=== PATIENT | female | born 1970 | race Caucasian/White ===

== ENCOUNTER 2020-05-01 15:03 | Inpatient (IN) | payer OTHER ==
[~2020-05-01] VITALS: Ht 154.9 cm; Wt 61.0 kg
[2020-05-01 16:50] VITALS: BP 106/62
[2020-05-01] MEDS ORDERED: TRAZODONE50 MG PO (17:39)
[2020-05-01] MEDS ORDERED: SEROQUEL25 MG PO (17:40)
[2020-05-01 18:37] LABS: BASO # 0.1 10*3/uL (0.0-0.1); BASO % 0.7 % (0.0-1.0); EOS # 0.1 10*3/uL (0.0-0.4); EOS % 1.6 % (1.0-4.0); HEMATOCRIT 37.8 % (37.0-47.0); LYMPH # 2.4 10*3/uL (1.3-4.4); LYMPH % 29.9 % (27.0-41.0); MEAN CELL VOLUME 93.8 fl (81.0-99.0); MEAN CORPUSCULAR HGB 30.3 pg (27.0-31.0); MEAN CORPUSCULAR HGB CONC 32.3 g/dl (33.0-37.0); MEAN PLATELET VOLUME 10.8 fl (9.6-12.3); MONO # 0.6 10*3/uL (0.1-1.0); MONO % 7.8 % (3.0-9.0); NEUT # 4.8 10*3/uL (2.3-7.9); NEUT % 59.8 % (47.0-73.0); PLATELET COUNT AUTOMATED 280 10*3/uL (130-400); RED BLOOD COUNT 4.03 10*6/uL (4.10-5.10); WHITE BLOOD COUNT 8.1 10*3/uL (4.8-10.8)
[2020-05-01 18:52] LABS: ALKALINE PHOSPHATASE 88 U/L (45-117); BUN 13 mg/dl (7-24); CHLORIDE 104 mmol/L (98-107); POTASSIUM 3.6 mmol/L (3.5-5.1); SGOT/AST 16 IU/L (3-35); SGPT/ALT 25 U/L (12-78); SODIUM 137 mmol/L (136-145); TOTAL PROTEIN 8.4 gm/dL (6.4-8.2)
[2020-05-01 18:56] LABS: BETA-HCG, QUANT < 1.0 mIU/mL (1-3)
[2020-05-01 19:54] LABS: BILIRUBIN NEGATIVE (NEGATIVE); CLARITY CLEAR (CLEAR); COLOR YELLOW (YELLOW); GLUCOSE NEGATIVE (NEGATIVE); KETONE NEGATIVE (NEGATIVE)
[2020-05-01 19:55] LABS: BLOOD NEGATIVE (NEGATIVE); LEUKO ESTERASE NEGATIVE (NEGATIVE); NITRITE NEGATIVE (NEGATIVE); SPECIFIC GRAVITY 1.005 (1.005-1.030); UROBILINOGEN 0.2 E.U./dl (0.2-1.0)
[2020-05-01 20:00] VITALS: BP 105/69
[2020-05-01 20:00] LABS: BACTERIA 2+; RBC 0-2 rbc/hpf (0-2); URINE AMPHETAMINES < 1000 (1000ng/ml); URINE BARBITURATES < 200 (200ng/ml); URINE BENZODIAZEPINES < 200 (200ng/ml); URINE CANNABINOIDS (THC) < 50 (50ng/ml); URINE COCAINE > 300 (300ng/ml); URINE METHADONE < 300 (300ng/ml); URINE OPIATES > 300 (300ng/ml); WBC 0-2 wbc/hpf (0-5)
[2020-05-01 20:05] LABS: URINE PHENCYCLIDINE < 25 (25ng/ml)
[2020-05-02] VITALS: BP 96/57
[2020-05-02 08:00] VITALS: BP 117/68
[2020-05-02 08:07] VITALS: BP 104/70
[2020-05-02 12:00] VITALS: BP 103/70
[2020-05-02 16:00] VITALS: BP 114/68
[2020-05-02 20:00] VITALS: BP 113/69
[2020-05-03] VITALS: BP 136/70
[2020-05-03 08:00] VITALS: BP 118/75
[2020-05-03 12:00] VITALS: BP 112/69
[2020-05-03 16:00] VITALS: BP 114/75
[2020-05-03 20:00] VITALS: BP 131/82
[2020-05-04] VITALS: BP 120/72
[2020-05-04 08:00] VITALS: BP 121/98
[2020-05-04] MEDS ORDERED: VITAMIN B-1100 M1 PO (11:46)
[2020-05-04] MEDS ORDERED: ATARAX,VISTARIL50 MG PO (11:46)
[2020-05-04] MEDS ORDERED: NICORETTE2 MG PO (11:46)
[2020-05-04] MEDS ORDERED: ROPINIROLE HYD0.5 MG PO (11:46)
[2020-05-04] MEDS ORDERED: ZOFRAN4 MG PO (11:46)
== END 2020-05-04 12:03 | disposition home or self-care (01) | DRG 773 ==
LOC: 5E 15:03 → 4E 15:03 → 5E 15:11
PROVIDERS: Internal Medicine; ADMIT Internal Medicine
DX: F10.230 Alcohol dependence with withdrawal, uncomplicated (principal); F11.23 Opioid dependence with withdrawal; F43.10 Post-traumatic stress disorder, unspecified; F31.9 Bipolar disorder, unspecified; F41.9 Anxiety disorder, unspecified; E16.2 Hypoglycemia, unspecified; F17.210 Nicotine dependence, cigarettes, uncomplicated; R23.1 Pallor; Z71.6 Tobacco abuse counseling; Z80.42 Family history of malignant neoplasm of prostate; Z80.8 Family history of malignant neoplasm of other organs or systems; Z79.899 Other long term (current) drug therapy

== ENCOUNTER 2020-09-19 15:28 | Inpatient (IN) | payer OTHER ==
[~2020-09-19] VITALS: Ht 154.9 cm; Wt 70.8 kg
[~2020-09-19 15:28] MED LIST: ATARAX,VISTARIL50 MG PO; NICORETTE2 MG PO; ROPINIROLE HYD0.5 MG PO; SEROQUEL25 MG PO; TRAZODONE50 MG PO; VITAMIN B-1100 M1 PO; ZOFRAN4 MG PO
--- NOTE | 2020-09-19 16:25 | NUR ---
49 year old FEMALE admitted to room # 518 for stabilization. Reports an addiction to HEROIN last used 10 hours prior to admission. Compliant with admission procedure. See assessment forms for additional information about patient status.
--- NOTE | 2020-09-19 16:43 | NUR ---
PATIENT MEETS [facility]. PATIENT IS WANTING TO FOLOW UP WITH [facility] FOR HER AFTERCARE PLAN. CINA=[id number]. JANELLE FREEMAN B.A. DIE CASTER
[2020-09-19 17:20] VITALS: BP 116/75
[2020-09-19 18:08] LABS: BASO # 0.1 10*3/uL (0.0-0.1); BASO % 0.7 % (0.0-1.0); EOS # 0.1 10*3/uL (0.0-0.4); EOS % 1.8 % (1.0-4.0); HEMATOCRIT 33.7 % (37.0-47.0); LYMPH # 2.4 10*3/uL (1.3-4.4); LYMPH % 33.9 % (27.0-41.0); MEAN CELL VOLUME 92.8 fl (81.0-99.0); MEAN CORPUSCULAR HGB CONC 32.3 g/dl (33.0-37.0); MEAN PLATELET VOLUME 10.2 fl (9.6-12.3); MONO # 0.9 10*3/uL (0.1-1.0); NEUT # 3.7 10*3/uL (2.3-7.9); NEUT % 51.5 % (47.0-73.0); PLATELET COUNT AUTOMATED 232 10*3/uL (130-400); RED BLOOD COUNT 3.63 10*6/uL (4.10-5.10); RED CELL DISTRI WIDTH 13.4 % (0-14.5); WHITE BLOOD COUNT 7.2 10*3/uL (4.8-10.8)
[2020-09-19 18:32] LABS: ALBUMIN 3.8 gm/dl (3.1-4.5); ALKALINE PHOSPHATASE 100 U/L (45-117); BUN 12 mg/dl (7-24); CHLORIDE 105 mmol/L (98-107); CREATININE 0.88 mg/dL (0.55-1.02); POTASSIUM 4.1 mmol/L (3.5-5.1); SGOT/AST 39 IU/L (3-35); SGPT/ALT 60 U/L (12-78); SODIUM 135 mmol/L (136-145); TOTAL PROTEIN 8.2 gm/dL (6.4-8.2)
[2020-09-19 18:37] LABS: ETHYL ALCOHOL < 3.0 mg/dl (<3)
[2020-09-19 20:00] VITALS: BP 113/67
[2020-09-19 20:40] LABS: URINE AMPHETAMINES < 1000 (1000ng/ml); URINE BARBITURATES < 200 (200ng/ml); URINE BENZODIAZEPINES < 200 (200ng/ml); URINE CANNABINOIDS (THC) < 50 (50ng/ml); URINE COCAINE > 300 (300ng/ml); URINE METHADONE < 300 (300ng/ml); URINE OPIATES < 300 (300ng/ml)
[2020-09-19 20:45] LABS: URINE PHENCYCLIDINE < 25 (25ng/ml)
[2020-09-19 20:50] LABS: BILIRUBIN Negative (Negative); BLOOD 1+ (Negative); CLARITY Clear (Clear); COLOR Yellow (Yellow); GLUCOSE Negative (Negative); KETONE Negative (Negative); LEUKO ESTERASE Negative (Negative); NITRITE Negative (Negative); PH 6.5 (4.5-8.0); SPECIFIC GRAVITY 1.015 (1.001-1.030)
[2020-09-19 21:07] LABS: BACTERIA TRACE; EPITHELIAL CELLS 0-2
--- NOTE | 2020-09-19 21:15 | NUR ---
PATIENT MEDICATED WITH TRAZODONE FOR COMPLAINTS OF INSOMNIA. WILL MONITOR FOR EFFECTIVENESS.
--- NOTE | 2020-09-19 23:52 | NUR ---
TRAZODONE EFFECTIVE. PATIENT IN BED SLEEPING. NO SIGNS OR SYMPTOMS OF DISTRESS NOTED. CALL LIGHT IN REACH.
[2020-09-20] VITALS: BP 112/59
[2020-09-20 08:00] VITALS: BP 126/64
[2020-09-20 12:00] VITALS: BP 114/60
--- NOTE | 2020-09-20 13:02 | NUR ---
[place] STAFF IN TO SEE PATIENT. PATIENT STILL WANTS TO FOLLOW UP WITH [facility] FOR HER AFTERCARE PLAN. JANELLE FREEMAN B.A. COSMETOLOGIST
[2020-09-20 16:00] VITALS: BP 135/71
[2020-09-20 20:00] VITALS: BP 127/69
[2020-09-21] VITALS: BP 130/80
[2020-09-21 08:00] VITALS: BP 120/82
--- NOTE | 2020-09-21 11:12 | NUR ---
[place] STAFF IN TO SEE PATIENT. PATIENT IS WANTING TO FOLLOW COUNTS INCLUDE 234 BEDS AT THE [facility] IN THE [place]A FOR OUTPATIENT TREATMENT. JANELLE FREEMAN B.A. BAKER HELPER
[2020-09-21 12:00] VITALS: BP 123/76
--- NOTE | 2020-09-21 15:26 | NUR ---
[place] STAFF IN TO SEE PATIENT. [place] STAFF PROVIDED PATIENT WITH APPOINTMENT DATE AND TIME WITH [facility]. PATIENT REPORTS THAT SHE HAS TRANSPORTATION POST DISCHARGE. PATIENT AGREES AND UNDERSTANDS HER AFTERCARE PLAN. JANELLE FREEMAN B.A. HEAD COOK
[2020-09-21 16:00] VITALS: BP 130/70
--- NOTE | 2020-09-21 19:10 | NUR ---
REPORT RECEIVED. PT ASLEEP AT THIS TIME
[2020-09-21 20:00] VITALS: BP 141/80
--- NOTE | 2020-09-21 21:00 | NUR ---
IN TO SEE PT. PT ASLEEP AT THIS TIME. NO DISTRESS NOTED
[2020-09-22] VITALS: BP 123/77
--- NOTE | 2020-09-22 00:13 | NUR ---
[facility] TRAZODONE ADMINISTERED PER ORDER FOR C/O INSOMNIA. WILL MONITOR FOR EFFECTIVENESS.
--- NOTE | 2020-09-22 01:10 | NUR ---
PRN TRAZODONE APPEARS EFFECTIVE, PT ASLEEP
[2020-09-22 06:33] LABS: BASO % 0.5 % (0.0-1.0); EOS # 0.1 10*3/uL (0.0-0.4); EOS % 0.9 % (1.0-4.0); HEMATOCRIT 37.7 % (37.0-47.0); LYMPH # 2.2 10*3/uL (1.3-4.4); LYMPH % 30.1 % (27.0-41.0); MEAN CELL VOLUME 93.1 fl (81.0-99.0); MEAN CORPUSCULAR HGB 29.6 pg (27.0-31.0); MEAN CORPUSCULAR HGB CONC 31.8 g/dl (33.0-37.0); MEAN PLATELET VOLUME 10.8 fl (9.6-12.3); MONO # 0.4 10*3/uL (0.1-1.0); MONO % 5.9 % (3.0-9.0); NEUT # 4.6 10*3/uL (2.3-7.9); NEUT % 62.3 % (47.0-73.0); PLATELET COUNT AUTOMATED 284 10*3/uL (130-400); RED BLOOD COUNT 4.05 10*6/uL (4.10-5.10); RED CELL DISTRI WIDTH 13.3 % (0-14.5); WHITE BLOOD COUNT 7.4 10*3/uL (4.8-10.8)
[2020-09-22 06:37] LABS: CREATININE 0.91 mg/dL (0.55-1.02)
--- NOTE | 2020-09-22 07:00 | NUR ---
ARRIVED ON SHIFT, REPORT RECEIBVED FROM OFFGOING NURSE, ASSUMED CARE OF PATIENT.
[2020-09-22 08:00] VITALS: BP 123/70
[2020-09-22] MEDS ORDERED: ATARAX,VISTARIL50 MG PO (10:00)
[2020-09-22] MEDS ORDERED: ROPINIROLE HYD0.5 MG PO (10:00)
[2020-09-22] MEDS ORDERED: ZOFRAN4 MG PO (10:00)
--- NOTE | 2020-09-22 11:59 | NUR ---
Patient discharged in stable condition, referral letter provided to patient with specific instructions and appointment for ongoing treatment. Patient verbalizes understanding of discharge plan.Written perscriptions given,no IV, Non monitored, refused w/c for discharge.
== END 2020-09-22 13:29 | disposition home or self-care (01) | DRG 773 ==
LOC: 5E 15:28
PROVIDERS: Student in an Organized Health Care Education/Training Program; ADMIT Family Medicine; ATTEND Family Medicine
DX: F11.23 Opioid dependence with withdrawal (principal); E87.1 Hypo-osmolality and hyponatremia; D64.9 Anemia, unspecified; F17.210 Nicotine dependence, cigarettes, uncomplicated; F41.9 Anxiety disorder, unspecified; F31.9 Bipolar disorder, unspecified; F43.10 Post-traumatic stress disorder, unspecified; R73.9 Hyperglycemia, unspecified; Z71.6 Tobacco abuse counseling; Z80.42 Family history of malignant neoplasm of prostate; Z80.8 Family history of malignant neoplasm of other organs or systems; Z79.899 Other long term (current) drug therapy

== ENCOUNTER 2021-05-03 15:21 | Inpatient (IN) | payer OTHER ==
[~2021-05-03] VITALS: Ht 154.9 cm; Wt 74.4 kg
[2021-05-03 16:00] VITALS: BP 107/71
[2021-05-03 16:06] LABS: BASO % 0.6 % (0.0-1.0); EOS # 0.2 10*3/uL (0.0-0.4); LYMPH # 2.2 10*3/uL (1.3-4.4); LYMPH % 32.4 % (27.0-41.0); MEAN CELL VOLUME 91.7 fl (81.0-99.0); MEAN CORPUSCULAR HGB 29.7 pg (27.0-31.0); MEAN CORPUSCULAR HGB CONC 32.4 g/dl (33.0-37.0); MEAN PLATELET VOLUME 10.7 fl (9.6-12.3); MONO # 0.7 10*3/uL (0.1-1.0); MONO % 9.9 % (3.0-9.0); NEUT # 3.6 10*3/uL (2.3-7.9); NEUT % 53.8 % (47.0-73.0); PLATELET COUNT AUTOMATED 234 10*3/uL (130-400); RED CELL DISTRI WIDTH 13.5 % (0-14.5); WHITE BLOOD COUNT 6.7 10*3/uL (4.8-10.8)
[2021-05-03 16:25] LABS: ALBUMIN 3.8 gm/dl (3.1-4.5); ALKALINE PHOSPHATASE 84 U/L (45-117); BUN 25 mg/dl (7-24); CHLORIDE 107 mmol/L (98-107); CREATININE 1.52 mg/dL (0.55-1.02); POTASSIUM 4.6 mmol/L (3.5-5.1); SGOT/AST 24 IU/L (3-35); SGPT/ALT 28 U/L (12-78); SODIUM 137 mmol/L (136-145); TOTAL PROTEIN 7.6 gm/dL (6.4-8.2)
[2021-05-03 16:26] LABS: ETHYL ALCOHOL < 3.0 mg/dl (<3)
[2021-05-03 16:32] LABS: BETA-HCG, QUANT < 1.0 mIU/mL (1-3)
[2021-05-03 16:45] VITALS: BP 107/71
[2021-05-03] MEDS ORDERED: 'CLONIDINE0.1 MG PO (18:21)
[2021-05-03 20:00] VITALS: BP 133/70
[2021-05-03 20:03] LABS: BILIRUBIN Negative (Negative); BLOOD Negative (Negative); CLARITY Clear (Clear); COLOR Yellow (Yellow); GLUCOSE Negative (Negative); KETONE Negative (Negative); LEUKO ESTERASE Negative (Negative); NITRITE Negative (Negative); PH 5.5 (4.5-8.0); UROBILINOGEN 0.2 E.U./dl (0.0-1.0)
[2021-05-03 20:11] LABS: URINE AMPHETAMINES > 1000 (1000ng/ml); URINE BARBITURATES < 200 (200ng/ml); URINE BENZODIAZEPINES < 200 (200ng/ml); URINE CANNABINOIDS (THC) < 50 (50ng/ml); URINE COCAINE > 300 (300ng/ml); URINE METHADONE < 300 (300ng/ml); URINE OPIATES < 300 (300ng/ml); URINE PHENCYCLIDINE < 25 (25ng/ml)
[2021-05-03 20:30] LABS: BACTERIA 1+; RBC 0-2 rbc/hpf (0-2); WHITE BLOOD CELL CAST 0-2
[2021-05-04] VITALS: BP 100/73
[2021-05-04 08:00] VITALS: BP 112/69
[2021-05-04 12:00] VITALS: BP 143/84
[2021-05-04 16:00] VITALS: BP 122/76
[2021-05-04 20:00] VITALS: BP 143/78
[2021-05-05] VITALS: BP 126/82
[2021-05-05 06:04] LABS: ALBUMIN 3.4 gm/dl (3.1-4.5); BASO # 0.1 10*3/uL (0.0-0.1); BASO % 0.7 % (0.0-1.0); BUN 16 mg/dl (7-24); CHLORIDE 109 mmol/L (98-107); CREATININE 0.73 mg/dL (0.55-1.02); EOS # 0.1 10*3/uL (0.0-0.4); EOS % 0.7 % (1.0-4.0); HEMATOCRIT 36.1 % (37.0-47.0); LYMPH # 1.8 10*3/uL (1.3-4.4); LYMPH % 23.4 % (27.0-41.0); MEAN CELL VOLUME 90.3 fl (81.0-99.0); MEAN CORPUSCULAR HGB 29.3 pg (27.0-31.0); MEAN CORPUSCULAR HGB CONC 32.4 g/dl (33.0-37.0); MEAN PLATELET VOLUME 11.6 fl (9.6-12.3); MONO # 0.6 10*3/uL (0.1-1.0); MONO % 7.6 % (3.0-9.0); NEUT % 67.3 % (47.0-73.0); PLATELET COUNT AUTOMATED 266 10*3/uL (130-400); RED CELL DISTRI WIDTH 13.2 % (0-14.5); SGOT/AST 22 IU/L (3-35); SGPT/ALT 24 U/L (12-78); SODIUM 136 mmol/L (136-145); WHITE BLOOD COUNT 7.5 10*3/uL (4.8-10.8)
[2021-05-05 06:06] LABS: ALKALINE PHOSPHATASE 79 U/L (45-117); TOTAL PROTEIN 7.4 gm/dL (6.4-8.2)
[2021-05-05 06:09] LABS: POTASSIUM 3.6 mmol/L (3.5-5.1)
[2021-05-05 08:00] VITALS: BP 122/75
[2021-05-05 12:00] VITALS: BP 140/84
[2021-05-05 16:00] VITALS: BP 141/75
[2021-05-05 20:00] VITALS: BP 134/74
[2021-05-06] VITALS: BP 118/76
[2021-05-06 06:43] LABS: BASO % 0.5 % (0.0-1.0); EOS % 0.5 % (1.0-4.0); HEMATOCRIT 37.7 % (37.0-47.0); LYMPH # 1.9 10*3/uL (1.3-4.4); MEAN CELL VOLUME 90.2 fl (81.0-99.0); MEAN CORPUSCULAR HGB 29.4 pg (27.0-31.0); MEAN CORPUSCULAR HGB CONC 32.6 g/dl (33.0-37.0); MONO # 0.6 10*3/uL (0.1-1.0); MONO % 7.3 % (3.0-9.0); NEUT # 5.9 10*3/uL (2.3-7.9); NEUT % 69.3 % (47.0-73.0); PLATELET COUNT AUTOMATED 296 10*3/uL (130-400); RED BLOOD COUNT 4.18 10*6/uL (4.10-5.10); RED CELL DISTRI WIDTH 13.2 % (0-14.5); WHITE BLOOD COUNT 8.5 10*3/uL (4.8-10.8)
[2021-05-06 06:56] LABS: ALBUMIN 3.8 gm/dl (3.1-4.5); ALKALINE PHOSPHATASE 84 U/L (45-117); BUN 19 mg/dl (7-24); CHLORIDE 106 mmol/L (98-107); CREATININE 0.72 mg/dL (0.55-1.02); POTASSIUM 3.7 mmol/L (3.5-5.1); SGOT/AST 23 IU/L (3-35); SGPT/ALT 26 U/L (12-78); SODIUM 136 mmol/L (136-145); TOTAL PROTEIN 8.2 gm/dL (6.4-8.2)
[2021-05-06 08:00] VITALS: BP 146/69
[2021-05-06 12:00] VITALS: BP 146/69
== END 2021-05-06 11:25 | disposition home or self-care (01) | DRG 773 ==
LOC: 4E 15:21
PROVIDERS: Family Medicine; Registered Nurse; ADMIT Emergency Medicine; ATTEND Emergency Medicine
DX: F11.23 Opioid dependence with withdrawal (principal); F41.9 Anxiety disorder, unspecified; F31.9 Bipolar disorder, unspecified; F43.10 Post-traumatic stress disorder, unspecified; F14.10 Cocaine abuse, uncomplicated; F10.139 Alcohol abuse with withdrawal, unspecified; Y90.0 Blood alcohol level of less than 20 mg/100 ml; F17.210 Nicotine dependence, cigarettes, uncomplicated; N17.0 Acute kidney failure with tubular necrosis; Z80.42 Family history of malignant neoplasm of prostate; Z80.8 Family history of malignant neoplasm of other organs or systems; Z79.899 Other long term (current) drug therapy